=== PATIENT | male | born 1995 | race Caucasian/White ===

== ENCOUNTER 2017-04-07 22:40 | Emergency (ER) | payer BC, MEDICAID ==
[2017-04-07 23:24] VITALS: BP 135/77
== END 2017-04-08 01:00 | disposition left against medical advice (07) ==
LOC: JP.ED 22:40
DX: Z53.21 Procedure and treatment not carried out due to patient leaving prior to being seen by health care provider (principal)

== ENCOUNTER 2017-06-21 21:22 | Emergency (ER) | payer BC ==
[2017-06-21 21:50] VITALS: BP 148/80
--- NOTE | 2017-06-21 23:08 | EDM.PDOC ---
ED HPI GENERAL MEDICAL PROBLEM - General Chief Complaint: General Stated Complaint: ILLNESS Time Seen by Provider: 06/21/17 21:54 Source of Information: Reports: Patient History Limitations: Reports: No Limitations - History of Present Illness INITIAL COMMENTS - FREE TEXT/NARRATIVE: this gentleman is here because of concerns about possible DVTs. He is a chemotherapy patient and recently had a pulmonary embolus. He had been taking Lovenox and then was put on Coumadin. His INR was 3.0 recently he was taken off the Lovenox and Coumadin. Today his INR is down to 1.4 so Lovenox was restarted. However he has been complaining of cramps in both of his calves and he talk with the oncologist and was told he needed to come here to rule out DVTs. - Related Data Allergies Allergy/AdvReac Type Severity Reaction Status Date / Time No Known Allergies Allergy Verified 06/21/17 21:36 Home Meds: Home Meds Venlafaxine [Effexor] 75 mg PO DAILY 04/07/17 [History] Dexamethasone 4 mg PO ASDIRECTED 06/21/17 [History] Enoxaparin [Lovenox] 80 mg SQ BID 06/21/17 [History] Ondansetron HCl [Ondansetron] 8 mg PO Q8HR PRN 06/21/17 [History] Warfarin Sodium [Coumadin] 10 mg PO DAILY 06/21/17 [History] Past Medical History - Past Health History Medical/Surgical History: Denies Medical/Surgical History HEENT History: Reports: Impaired Vision Cardiovascular History: Reports: Blood Clots/VTE/DVT Respiratory History: Reports: PE Genitourinary History: Reports: Renal Calculus Neurological History: Reports: Concussion Psychiatric History: Reports: Depression Immunologic History: Reports: Immunosuppression, Other (See Below) Other Immunologic History: chemo Oncologic (Cancer) History: Reports: Hodgkin's Lymphoma, Lymphoma - Past Surgical History Oncologic Surgical History: Reports: Other (See Below) Other Oncologic Surgeries/Procedures: lymph node removed Social & Family History - Tobacco Use Smoking Status *Q: Never Smoker - Caffeine Use Caffeine Use: Reports: Coffee, Soda - Recreational Drug Use Recreational Drug Use: Yes Recreational Drug Type: Reports: Marijuana/Hashish Recreational Drug Use Frequency: Rarely ED ROS GENERAL - Review of Systems Review Of Systems: ROS reveals no pertinent complaints other than HPI. ED EXAM, GENERAL - Physical Exam Exam: See Below Exam Limited By: No Limitations General Appearance: Alert, Thin Respiratory/Chest: Lungs Clear Cardiovascular: Regular Rate, Rhythm Extremities: Other (no obvious swelling of the legs however he does have some mild to moderate calf tenderness bilaterally. No cords are palpable. Pedal pulses all normal) Neurological: Alert Course - Vital Signs Last Recorded V/S: Last Vital Signs Temp 37 C 06/21/17 21:48 Pulse 87 06/21/17 21:48 Resp 14 06/21/17 21:48 BP 148/80 H 06/21/17 21:48 Pulse Ox 96 06/21/17 21:48 - Re-Assessments/Exams Free Text/Narrative Re-Assessment/Exam: 07/09/17 08:03 bilateral venous ultrasound showed no evidence of lower extremity DVTs Departure - Departure Time of Disposition: 23:06 Disposition: Home, Self-Care 01 Condition: Fair Clinical Impression: Bilateral calf pain, Hodgkins lymphoma - Discharge Information Referrals: Jane Cooper MD [Primary Care Provider] - Forms: ED Department Discharge Additional Instructions: Continue Lovenox and warfarin as directed by your Dr. Return to the ER at any time if needed
--- NOTE | 2017-06-22 11:58 | US ---
No evidence for acute DVT.
== END 2017-06-21 23:15 | disposition home or self-care (01) ==
LOC: JP.ED 21:22
DX: M79.662 Pain in left lower leg (principal); M79.661 Pain in right lower leg; C81.90 Hodgkin lymphoma, unspecified, unspecified site; F32.9 Major depressive disorder, single episode, unspecified; Z86.718 Personal history of other venous thrombosis and embolism; Z87.442 Personal history of urinary calculi; Z98.890 Other specified postprocedural states; Z79.01 Long term (current) use of anticoagulants; Z79.899 Other long term (current) drug therapy
CPT/HCPCS: 93970; 93970-26; 99284-25

== ENCOUNTER 2017-09-03 13:31 | Inpatient (IN) | payer BC ==
[2017-09-03] MEDS ORDERED: LIDOCAINE 2% PO PRN ×2 (14:29)
[2017-09-03] MEDS ORDERED: SODIUM CHLORIDE 0.9% PO PRN ×2 (14:29)
[2017-09-03] MEDS ORDERED: [UNRECOGNIZED DRUG - OTHER] PO PRN (14:47)
[2017-09-03] MEDS: 1: AA 5%/Calcium/D15W/Lytes 1,000 ML with MVI, Adult with Vitamin K 10 ML, Chromium/Copp IV SCH ×3 (15:03)
--- NOTE | 2017-09-03 15:31 | PCM.HP ---
H&P History of Present Illness - General Date of Service: 09/03/17 Source of Information: Patient History Limitations: Reports: No Limitations - History of Present Illness Initial Comments - Free Text/Narative: Anthony is a 22 year old male who was diagnosed with Hodkin's Lymphoma in Feb, 2017. He finished radiation therapy last week and now has been unable to eat or drink because his mouth and throat are so sore. Anthony has been getting 1 liter of NS once daily for the past 4 - 5 days. Reports feeling weak and tired. He has been on Decadron and has has an oral medication to numb his mouth and throat which he can't remember the name of the specific medicine. Onset of Symptoms: Reports: Gradual Associated Symptoms: Reports: Loss of Appetite, Malaise, Weakness - Related Data Allergies/Adverse Reactions: Allergies Allergy/AdvReac Type Severity Reaction Status Date / Time No Known Allergies Allergy Verified 09/03/17 13:53 Home Medications: Home Meds Venlafaxine [Effexor] 75 mg PO DAILY 04/07/17 [History] Dexamethasone 4 mg PO ASDIRECTED 06/21/17 [History] Ondansetron HCl [Ondansetron] 8 mg PO Q8HR PRN 06/21/17 [History] Warfarin Sodium [Coumadin] 10 mg PO DAILY 06/21/17 [History] Hydrocodone/Acetaminophen [Hydrocodon-Acetaminophen 5-325] 1 each PO Q4H PRN [History] Past Medical History - Past Health History Medical/Surgical History: Denies Medical/Surgical History HEENT History: Reports: Impaired Vision Cardiovascular History: Reports: Blood Clots/VTE/DVT Respiratory History: Reports: PE Genitourinary History: Reports: Renal Calculus Musculoskeletal History: Reports: None Neurological History: Reports: Concussion Psychiatric History: Reports: Depression Immunologic History: Reports: Immunosuppression, Other (See Below) Other Immunologic History: chemo Oncologic (Cancer) History: Reports: Hodgkin's Lymphoma, Lymphoma Dermatologic History: Reports: Eczema, Other (See Below) Other Dermatologic History: rash on upper chest and neck d/t radiation - Infectious Disease History Infectious Disease History: Reports: Chicken Pox - Past Surgical History HEENT Surgical History: Reports: None Cardiovascular Surgical History: Reports: None Respiratory Surgical History: Reports: None Male Surgical History: Reports: None Neurological Surgical History: Reports: None Musculoskeletal Surgical History: Reports: Arthroscopic Knee Oncologic Surgical History: Reports: Other (See Below) Other Oncologic Surgeries/Procedures: lymph node removed Dermatological Surgical History: Reports: None Social & Family History - Tobacco Use Smoking Status *Q: Never Smoker Second Hand Smoke Exposure: No - Caffeine Use Caffeine Use: Reports: Coffee, Soda - Recreational Drug Use Recreational Drug Use: No Recreational Drug Type: Reports: Marijuana/Hashish Recreational Drug Use Frequency: Rarely H&P Review of Systems - Review of Systems: Review Of Systems: See Below General: Reports: Weakness, Fatigue, Decreased Appetite HEENT: Reports: Sore Throat, Other (mouth is sore ) Pulmonary: Reports: No Symptoms Cardiovascular: Reports: No Symptoms Gastrointestinal: Reports: Decreased Appetite, Nausea Genitourinary: Reports: No Symptoms Musculoskeletal: Reports: Leg Pain Skin: Reports: Other (rash on left side of neck ) Psychiatric: Reports: Depression Neurological: Reports: No Symptoms Hematologic/Lymphatic: Reports: No Symptoms Immunologic: Reports: No Symptoms Exam - Exam Exam: See Below - Vital Signs Weight: 179 lb 12.8 oz - Exam Quality Assessment: DVT Prophylaxis General: Alert, Oriented, Cooperative, Mild Distress HEENT: PERRLA Neck: Supple Lungs: Clear to Auscultation, Normal Respiratory Effort Cardiovascular: Regular Rate, Regular Rhythm GI/Abdominal Exam: Non-Tender (Male) Exam: Deferred Rectal (Males) Exam: Deferred Back Exam: Normal Inspection Extremities: Normal Inspection, Normal Range of Motion Skin: Warm, Dry, Intact, Rash (radiation burn left side of neck and upper jaw line ) Neurological: Cranial Nerves Intact, Reflexes Equal Bilateral Neuro Extensive - Mental Status: Alert, Oriented x3, Normal Mood/Affect Neuro Extensive - Motor, Sensory, Reflexes: CN II-XII Intact Psychiatric: Alert, Normal Affect, Normal Mood *Q Meaningful Use (ADM) - VTE *Q VTE Criteria *Q: - Stroke *Q Stroke Criteria *Q: - AMI *Q AMI Criteria *Q: - Problem List (1) Stomatitis and mucositis SNOMED Code(s): 40132243 ICD Code: K12.1 - OTHER FORMS OF STOMATITIS; K12.30 - ORAL MUCOSITIS ( ULCERATIVE), UNSPECIFIED Status: Acute Current Visit: Yes (2) Malnutrition SNOMED Code(s): 77018260 ICD Code: E46 - UNSPECIFIED PROTEIN-CALORIE MALNUTRITION Status: Acute Current Visit: Yes Qualifiers: Protein-calorie malnutrition severity: moderate Problem List Initiated/Reviewed/Updated: Yes Orders Last 24hrs: Active Orders 24 hr Category Date Time Status Intake and Output [RC] CONTINUOUS Care 09/03/17 14:21 Active Vital Signs [RC] Q4H Care 09/03/17 14:23 Active Full Liquid Diet [DIET] Diet 09/03/17 Dinner Ordered ALT Order Med 09/03/17 14:30 Active Fat Emulsion [Intralipid 20%] 100 ml Med 09/03/17 18:00 Active IV DAILY@1800 Lidocaine 2% [Xylocaine 2% Viscous] 30 ml Med 09/03/17 14:29 Active Sodium Chloride 0.9% 150 ml PO ASDIRECTED Magnesium Sulfate/Water [Magnesium Sulfate 2 GM in Med 09/03/17 16:00 Active Water 50 ML] 2 gm Premix Bag 1 bag IV Q6H Non-Formulary Medication [NF Drug] Med 09/03/17 14:47 Active 0 each PO ASDIRECTED PRN Non-Formulary Medication [NF Drug] Med 09/04/17 09:00 Active 0 each TOP DAILY Venlafaxine [Effexor] Med 09/03/17 17:00 Active 75 mg PO DAILY@1700 Medication Orders Lidocaine HCl 30 ml/ Sodium (Chloride 150 ml) 0 ml PO ASDIRECTED PRN PRN Reason: SORENESS Multivitamins/Minerals 10 ml/Chromium/Copper/Manganese/Seleni/Zn 1 ml/ Amino Ac/ Electrol/Dextrose/Calcium 1,011 mls @ 100 mls/hr IV .BY DURATION [facility] Last Admin: 09/03/17 15:03 Dose: 100 mls/hr Amino Ac/Electrol/Dextrose/Calcium (Clinimix E 02/22) 1,000 mls @ 100 mls/hr IV .BY DURATION [facility] Fat Emulsion Intravenous (Intralipid 20%) 100 mls @ 8 mls/hr IV DAILY@1800 [facility] Magnesium Sulfate 2 gm/ Premix 50 mls @ 25 mls/hr IV Q6H [facility] Stop: 09/05/17 11:59 Emu Oil *Pom* 0 each TOP DAILY MAGED Mugard *Pom* 0 each PO ASDIRECTED PRN PRN Reason: MOUTH SORENESS Venlafaxine HCl (Effexor) 75 mg PO DAILY@1700 [facility] Assessment/Plan Comment:: Assessment: Stomatitis Secondary to Radiation Therapy Malnutrition Hodkin's lymphoma Plan: Admit to [facility] To keep up with hydration and to start TPN for nutrition See Copy of orders in EMR Admit to Inpatient for hospital stay of 3 nights and 4 days. Annita Bill
[2017-09-03] MEDS: Acetaminophen/HYDROcodone 325-7.5 MG Tab PO PRN ×2 (16:10→20:25)
[2017-09-03] MEDS: Magnesium Sulfate/Water 2 GM in Premix Bag 1 BAG IV SCH ×2 (16:46→22:48)
[2017-09-03] MEDS ORDERED: Venlafaxine 75 MG Tab PO SCH (17:00)
[2017-09-03] MEDS: Venlafaxine 75 MG Cap.ER PO SCH (17:24)
[2017-09-03] MEDS: Fat Emulsion 100 ML IV SCH (20:27)
[2017-09-04] MEDS: Acetaminophen/HYDROcodone 325-7.5 MG Tab PO PRN ×6 (00:29→23:31)
[2017-09-04] MEDS: 1: AA 5%/Calcium/D15W/Lytes 1,000 ML with MVI, Adult with Vitamin K 10 ML, Chromium/Copp IV SCH ×12 (00:29→19:51)
[2017-09-04] MEDS: Magnesium Sulfate/Water 2 GM in Premix Bag 1 BAG IV SCH ×4 (04:15→22:52)
[2017-09-04] MEDS: EMU OIL TOP SCH (09:17)
[2017-09-04] MEDS: [UNRECOGNIZED DRUG - OTHER] PO PRN ×2 (09:22→15:37)
[2017-09-04] MEDS ORDERED: Warfarin 5 MG Tab PO ONE (09:30)
[2017-09-04] MEDS: Venlafaxine 75 MG Cap.ER PO SCH (17:25)
[2017-09-04] MEDS: Fat Emulsion 100 ML IV SCH (17:39)
[2017-09-05] MEDS: Magnesium Sulfate/Water 2 GM in Premix Bag 1 BAG IV SCH ×2 (03:29→09:00)
[2017-09-05] MEDS: Acetaminophen/HYDROcodone 325-7.5 MG Tab PO PRN ×6 (03:33→23:13)
[2017-09-05] MEDS: 1: AA 5%/Calcium/D15W/Lytes 1,000 ML with MVI, Adult with Vitamin K 10 ML, Chromium/Copp IV SCH ×6 (04:24→06:14)
[2017-09-05] MEDS ORDERED: [UNRECOGNIZED DRUG - OTHER] PO PRN (08:11)
[2017-09-05] MEDS ORDERED: Warfarin 5 MG Tab PO ONE (09:00)
[2017-09-05] MEDS: EMU OIL TOP SCH (09:00)
[2017-09-05] MEDS: Enoxaparin 60 MG/0.6 ML Syringe SUBCUT SCH ×2 (09:00→23:13)
[2017-09-05] MEDS: Hydrocortisone 1% Crm 30 GM Tube TOP SCH ×2 (09:01→23:13)
[2017-09-05] MEDS: [UNRECOGNIZED DRUG - OTHER] PO SCH ×3 (09:05→23:12)
--- NOTE | 2017-09-05 13:56 | PN ---
DATE OF SERVICE: 09/04/2017 The patient has been afebrile with stable vital signs. He was started on MuGard, he thinks this may be helping a little bit with the oral symptoms. He had around 680 mL of liquids in since admission and is otherwise tolerating the TPN. Protime is down with an INR of 1.8 today. We will give him 10 mg of Coumadin. Otherwise, the patient may shower, and we will continue the present TPN rate and content. It will be interesting to see over the weekend if with the MuGard, the oral symptoms may improve to the extent that he does not necessarily need to go home on the TPN, but we will see how things go over the next 48 hours in that regard. Yousif Daigle MD /[id number]
[2017-09-05] MEDS: MANG IV SCH ×2 (15:09)
[2017-09-05] MEDS: LYTES IV SCH ×2 (15:09)
[2017-09-05] MEDS: COPPER IV SCH ×2 (15:09)
[2017-09-05] MEDS: [UNRECOGNIZED DRUG - OTHER] IV SCH ×2 (15:09)
[2017-09-05] MEDS: SELEN IV SCH ×2 (15:09)
[2017-09-05] MEDS: CALCIUM IV SCH ×2 (15:09)
[2017-09-05] MEDS: CHROMIUM IV SCH ×2 (15:09)
[2017-09-05] MEDS: Venlafaxine 75 MG Cap.ER PO SCH (17:06)
[2017-09-05] MEDS: Fat Emulsion 100 ML IV SCH (17:06)
[2017-09-06] MEDS: SELEN IV SCH ×2 (01:39)
[2017-09-06] MEDS: LYTES IV SCH ×2 (01:39)
[2017-09-06] MEDS: CHROMIUM IV SCH ×2 (01:39)
[2017-09-06] MEDS: CALCIUM IV SCH ×2 (01:39)
[2017-09-06] MEDS: [UNRECOGNIZED DRUG - OTHER] IV SCH ×2 (01:39)
[2017-09-06] MEDS: COPPER IV SCH ×2 (01:39)
[2017-09-06] MEDS: MANG IV SCH ×2 (01:39)
[2017-09-06] MEDS: Acetaminophen/HYDROcodone 325-7.5 MG Tab PO PRN ×2 (04:23→10:09)
[2017-09-06] MEDS: [UNRECOGNIZED DRUG - OTHER] PO SCH ×2 (05:43→10:41)
[2017-09-06 07:26] VITALS: BP 132/69
[2017-09-06] MEDS ORDERED: Silver Sulfadiazine 1% Crm 50 GM Tube TOP SCH (09:00)
[2017-09-06] MEDS: Enoxaparin 60 MG/0.6 ML Syringe SUBCUT SCH (10:08)
[2017-09-06] MEDS: Hydrocortisone 1% Crm 30 GM Tube TOP SCH (10:41)
[2017-09-06] MEDS: EMU OIL TOP SCH (10:41)
--- NOTE | 2017-09-06 15:00 | PN ---
DATE OF SERVICE: 09/05/2017 The patient has been afebrile with stable vital signs. Oral intake in terms of water is fairly good, but still not taking very much in the way of anything of nutritional value. We will continue the TPN and MuGard. We will see where we are at tomorrow morning with regard to the oral intake. The ProTime today is quite low with an INR of 1.28. This is likely related to the vitamins he is receiving from the TPN. vitamins and the TPN. We will give him 50 mg of Coumadin. He also complained of some itching on the neck areas that have the radiation savage and that area will be treated with some hydrocortisone cream. With the ProTime being that low, we will begin Lovenox 60 mg b.i.d. until we get the INR improved back up to the therapeutic range. Yousif Daigle MD /[id number]
--- NOTE | 2017-09-07 07:27 | DISCH ---
ADMISSION DIAGNOSES: Stomatitis and mucositis, malnutrition and Hodgkin lymphoma. DISCHARGE DIAGNOSES: Improvement of stomatitis and mucositis with malnutrition, Hodgkin lymphoma. HISTORY: Anthony Blackman finished radiation therapy and developed stomatitis and mucositis which resulted in malnutrition and dehydration. He was admitted to the hospital on 09/03/2017 and started on IV fluids, TPN. His INR and PT were roched daily. He was started also on MuGard for the stomatitis and mucositis to improve and he was given the TPN throughout the weekend. On 09/05/2017, he was afebrile. Oral intake was fairly good with MuGard. He continued to be on the TPN and he was also on Lovenox 60 mg until the INR improved back up to the therapeutic range. The left neck radiation burn was causing some itching in that area and he was started on hydrocortisone. On 09/06/2017, he was able to be discharged to home. Vital signs were stable. Oral intake was 1570 which most of it was Unjury protein. His TPN was turned down to 42 hours prior to being discharged to home. He reports that the hydrocortisone did burn so was changed to Silvadene. Vital signs were stable. Pain was well managed and oral intake adequate. He will be discharged to home using the MuGard for mouth pain. PHYSICAL EXAMINATION: GENERAL: Anthony Blackman is a 22-year-old male. Height is 5 feet 11 inches. Weight is 179 pounds. TPR 97.3, 80, 16, blood pressure 132/69. HEENT: Negative. NECK: Supple. HEART: Regular rate and rhythm. LUNGS: Clear. ABDOMEN: Deferred. EXTREMITIES: Negative. SKIN: Radiation burn noted on the left lower jaw and neck. DISPOSITION: Discharged to home. CONDITION: Stable and improving. FOLLOWUP: With Yousif Daigle MD, on 09/08/2017 at 9 a.m. He is to have his PT and INR checked at 0830 hours before his appointment. HOME MEDICATION: Peggs 7.5 mg/325 1-2 tablets q.4 hours p.r.n. pain #50, Lovenox 60 mg subcu b.i.d. #6, Silvadene 1% cream/400 g use sparingly 2 twice daily to burn, Coumadin 5 mg today and 10 mg on Wednesday and he is to hold the Coumadin on the day of his appointment until after he gets his PT and INR checked. He is to resume his home medications venlafaxine 75 mg oral daily, Zofran 8 mg every 8 hours p.r.n. nausea. DISCHARGE DIET: Usual diet as tolerated. Drink 8 to 10 glasses of water a day. ACTIVITY: As tolerated. Driving, may drive today. May shower. Notify provider if any pain, nausea or vomiting. Special instructions, to continue taking the MuGard as directed and to call clinic with any questions or concerns.
== END 2017-09-06 10:42 | disposition home health service (06) | DRG 114 ==
LOC: JP.2SS 13:31
PROVIDERS: ADMIT Surgery; ATTEND Surgery
DX: K12.33 Oral mucositis (ulcerative) due to radiation (principal); K12.1 Other forms of stomatitis; E44.0 Moderate protein-calorie malnutrition; Z68.25 Body mass index [BMI] 25.0-25.9, adult; C81.90 Hodgkin lymphoma, unspecified, unspecified site; Z92.21 Personal history of antineoplastic chemotherapy; Z92.3 Personal history of irradiation; H54.7 Unspecified visual loss; Z86.711 Personal history of pulmonary embolism; Z86.718 Personal history of other venous thrombosis and embolism; F32.9 Major depressive disorder, single episode, unspecified; Z79.01 Long term (current) use of anticoagulants; Z79.52 Long term (current) use of systemic steroids; E86.0 Dehydration; T20.07XA Burn of unspecified degree of neck, initial encounter
CPT/HCPCS: 36415; 80053; 84100; 85027; 85610; A9270-GY; J1650; J3475; J3490

== ENCOUNTER 2017-09-10 18:52 | Emergency (ER) | payer BC ==
[2017-09-10 19:41] VITALS: BP 124/74
[2017-09-10] MEDS ORDERED: Lactated Ringers 1,000 ML IV ONE (20:22)
--- NOTE | 2017-09-10 20:22 | EDM.PDOC ---
ED HPI GENERAL MEDICAL PROBLEM - General Chief Complaint: General Stated Complaint: illness Time Seen by Provider: 09/10/17 20:10 Source of Information: Reports: Patient History Limitations: Reports: No Limitations - History of Present Illness INITIAL COMMENTS - FREE TEXT/NARRATIVE: 22 yo male with Hodgkin's Lymphoma was recently discharged from here after an admission for not being able to eat due to mouth sores. He returns tonight still unable to eat. Has been drinking some protein shakes. 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 Has not discussed this with his doctor's since departing the hospital this past Wednesday. Also has anorexia. Onset: Gradual Duration: Day(s):, Getting Worse Location: Reports: Face (mouth) Quality: Reports: Other (mouth sore) Improves with: Reports: Rest Worsens with: Reports: Eating Context: Reports: Other (radiation therapy to area for Hodgkin's Dz) Associated Symptoms: Reports: Loss of Appetite, Malaise. Denies: Cough, Diaphoresis, Fever/Chills, Nausea/Vomiting, Syncope Treatments SODDER: Reports: Other (see below) (Topical Rx tid) mouth Pain Score (Numeric/FACES): 5 - Related Data Allergies Allergy/AdvReac Type Severity Reaction Status Date / Time No Known Allergies Allergy Verified 09/10/17 19:49 Home Meds: Home Meds Ondansetron HCl [Ondansetron] 8 mg PO Q8HR PRN 06/21/17 [History] Venlafaxine HCl [Venlafaxine HCl ER] 75 mg PO DAILY 09/03/17 [History] Acetaminophen/HYDROcodone [Deary 325-7.5 MG] 1 - 2 tab PO Q4H PRN #50 tablet [Rx] Silver Sulfadiazine [Silvadene 1% Cream 400 GM] 1 gm TOP BID #1 jar 09/06/17 [Rx ] Warfarin Sodium [Coumadin] 5 mg PO DAILY #0 09/06/17 [Rx] Past Medical History - Past Health History Medical/Surgical History: Denies Medical/Surgical History HEENT History: Reports: Impaired Vision Cardiovascular History: Reports: Blood Clots/VTE/DVT Respiratory History: Reports: PE Genitourinary History: Reports: Renal Calculus Musculoskeletal History: Reports: None Neurological History: Reports: Concussion Psychiatric History: Reports: Depression Immunologic History: Reports: Immunosuppression, Other (See Below) Other Immunologic History: chemo Oncologic (Cancer) History: Reports: Hodgkin's Lymphoma, Lymphoma Dermatologic History: Reports: Eczema, Other (See Below) Other Dermatologic History: rash on upper chest and neck d/t radiation - Infectious Disease History Infectious Disease History: Reports: Chicken Pox - Past Surgical History Musculoskeletal Surgical History: Reports: Arthroscopic Knee Oncologic Surgical History: Reports: Other (See Below) Other Oncologic Surgeries/Procedures: lymph node removed Social & Family History - Tobacco Use Smoking Status *Q: Never Smoker Second Hand Smoke Exposure: No - Caffeine Use Caffeine Use: Reports: Coffee, Soda - Recreational Drug Use Recreational Drug Use: No Recreational Drug Type: Reports: Marijuana/Hashish Recreational Drug Use Frequency: Rarely ED ROS GENERAL - Review of Systems Review Of Systems: See Below Constitutional: Reports: Malaise, Decreased Appetite. Denies: Fever, Chills HEENT: Reports: Throat Pain (back of mouth) Respiratory: Reports: No Symptoms Cardiovascular: Reports: No Symptoms Endocrine: Reports: No Symptoms GI/Abdominal: Reports: Anorexia. Denies: Abdominal Pain, Black Stool, Bloody Stool, Distension, Hematemesis, Hematochezia, Nausea, Stool Incontinence, Vomiting : Reports: Other (dark urine) Musculoskeletal: Reports: No Symptoms Skin: Reports: No Symptoms Neurological: Reports: No Symptoms Psychiatric: Reports: No Symptoms ED EXAM, GENERAL - Physical Exam Exam: See Below Exam Limited By: No Limitations General Appearance: Alert, WD/WN, No Apparent Distress Eye Exam: Bilateral Eye: Normal Inspection Ears: Normal External Exam, Normal Canal, Hearing Grossly Normal, Other ( bilateral cerumen impactions) Ear Exam: Bilateral Ear: Auricle Normal, Other (wax in both ears.) Nose: Normal Inspection, Normal Mucosa, No Blood Throat/Mouth: Normal Inspection, Normal Lips, Normal Voice, No Airway Compromise , Inflammation (oral mucosa swollen and angry looking) Head: Atraumatic, Normocephalic Neck: Normal Inspection, Supple, Non-Tender Respiratory/Chest: No Respiratory Distress, Lungs Clear, Normal Breath Sounds, No Accessory Muscle Use Cardiovascular: Regular Rate, Rhythm, No Edema GI/Abdominal: Normal Bowel Sounds, Soft, Non-Tender, No Distention Back Exam: Normal Inspection. No: CVA Tenderness (R), CVA Tenderness (L) Extremities: Normal Inspection, Normal Range of Motion, Non-Tender, No Pedal Edema Neurological: Alert, Oriented, CN II-XII Intact, Normal Cognition, No Motor/ Sensory Deficits Psychiatric: Normal Affect, Normal Mood Skin Exam: Warm, Dry, Intact, Normal Color, No Rash Lymphatic: No Adenopathy Course - Vital Signs Last Recorded V/S: Last Vital Signs Temp 36.2 C 09/10/17 20:04 Pulse 74 09/10/17 20:04 Resp 16 09/10/17 20:04 BP 124/74 09/10/17 20:04 Pulse Ox 94 L 09/10/17 20:04 Orthostatic Blood Pressure [ 117/78 Standing] Orthostatic Blood Pressure [ 125/77 Sitting] Orthostatic Blood Pressure [ 125/75 Supine] - Orders/Labs/Meds Orders: Active Orders 24 hr Category Date Time Status Orthostatic Vital Signs [RC] ASDIRECTED Care 09/10/17 20:03 Active Lactated Ringers [Ringers, Lactated] 1,000 ml Med 09/10/17 20:22 Active IV BOLUS Medication Orders Lactated Ringer's (Ringers, Lactated) 1,000 mls @ 1,000 mls/hr IV BOLUS ONE Stop: 09/10/17 21:21 Last Admin: 09/10/17 20:45 Dose: 1,000 mls/hr Labs: Laboratory Tests 09/10/17 Range/Units 20:11 Urine Color [place] Urine Appearance Clear Urine pH 5.0 (4.5-8.0) Ur Specific [place] 1.030 (1.008-1.030) Urine Protein Negative (NEGATIVE) mg/dL Urine Glucose (UA) Normal (NEGATIVE) mg/dL Urine Ketones 15 H (NEGATIVE) mg/dL Urine Occult Blood Negative (NEGATIVE) Urine Nitrite Negative (NEGAITVE) Urine Bilirubin Small (NEGATIVE) Urine Urobilinogen 1 (NORMAL) mg/dL Ur Leukocyte Esterase Negative (NEGATIVE) Meds: Medications Generic Name Dose Route Start Last Admin Trade Name Freq PRN Reason Stop Dose Admin Lactated Ringer's 1,000 mls @ 1,000 mls/hr 09/10/17 20:22 09/10/17 20:45 Ringers, Lactated IV 09/10/17 21:21 1,000 mls/hr BOLUS ONE Administration Departure - Departure Time of Disposition: 21:45 Disposition: Home, Self-Care 01 Condition: Fair Clinical Impression: Stomatitis and mucositis, Mild dehydration, Bilateral impacted cerumen - Discharge Information Referrals: PCP,None [Primary Care Provider] - Forms: ED Department Discharge - My Orders Last 24 Hours: My Active Orders 09/10/17 20:03 Orthostatic Vital Signs [RC] ASDIRECTED 09/10/17 20:22 Lactated Ringers [Ringers, Lactated] 1,000 ml IV BOLUS - Assessment/Plan Last 24 Hours: My Active Orders 09/10/17 20:03 Orthostatic Vital Signs [RC] ASDIRECTED 09/10/17 20:22 Lactated Ringers [Ringers, Lactated] 1,000 ml IV BOLUS
== END 2017-09-10 22:07 | disposition home or self-care (01) ==
LOC: JP.ED 18:52
DX: K12.1 Other forms of stomatitis (principal); K12.30 Oral mucositis (ulcerative), unspecified; E86.0 Dehydration; H61.23 Impacted cerumen, bilateral; Z79.899 Other long term (current) drug therapy
CPT/HCPCS: 81003; 96360; 99283; J1642; J7120

== ENCOUNTER 2017-09-13 13:18 | Emergency (ER) | payer BC ==
[2017-09-13 14:09] VITALS: BP 115/68
--- NOTE | 2017-09-13 14:44 | EDM.PDOC ---
ED HPI GENERAL MEDICAL PROBLEM - General Chief Complaint: General Stated Complaint: POSSIBLE INFECTION Time Seen by Provider: 09/13/17 14:32 Source of Information: Reports: Patient, Family, Old Records, RN Notes Reviewed History Limitations: Reports: No Limitations - History of Present Illness INITIAL COMMENTS - FREE TEXT/NARRATIVE: 22-year-old gentleman presents emergency department today complaint of swollen glands in his neck he does have a history of Hodgkin's lymphoma status post chemotherapy treatment has had difficulty with mucositis and been treated with TPN due to poor oral intake. He woke up this morning and feeling his glands are swollen in his neck no difficulty swallowing no difficulty breathing no fevers Throat Pain Score (Numeric/FACES): 1 - Related Data Allergies Allergy/AdvReac Type Severity Reaction Status Date / Time No Known Allergies Allergy Verified 09/13/17 14:10 Home Meds: Home Meds Ondansetron HCl [Ondansetron] 8 mg PO Q8HR PRN 06/21/17 [History] Venlafaxine HCl [Venlafaxine HCl ER] 75 mg PO DAILY 09/03/17 [History] Acetaminophen/HYDROcodone [[place] 325-7.5 MG] 1 - 2 tab PO Q4H PRN #50 tablet [Rx] Warfarin Sodium [Coumadin] 5 mg PO DAILY #0 09/06/17 [Rx] Past Medical History HEENT History: Reports: Impaired Vision Cardiovascular History: Reports: Blood Clots/VTE/DVT Respiratory History: Reports: PE Genitourinary History: Reports: Renal Calculus Neurological History: Reports: Concussion Psychiatric History: Reports: Depression Immunologic History: Reports: Immunosuppression, Other (See Below) Other Immunologic History: chemo Oncologic (Cancer) History: Reports: Hodgkin's Lymphoma, Lymphoma Dermatologic History: Reports: Eczema, Other (See Below) Other Dermatologic History: rash on upper chest and neck d/t radiation - Infectious Disease History Infectious Disease History: Reports: Chicken Pox - Past Surgical History Musculoskeletal Surgical History: Reports: Arthroscopic Knee Oncologic Surgical History: Reports: Other (See Below) Other Oncologic Surgeries/Procedures: lymph node removed from neck Social & Family History - Tobacco Use Smoking Status *Q: Never Smoker Second Hand Smoke Exposure: No - Caffeine Use Caffeine Use: Reports: Coffee, Soda - Recreational Drug Use Recreational Drug Use: No Recreational Drug Type: Reports: Marijuana/Hashish Recreational Drug Use Frequency: Rarely ED ROS GENERAL - Review of Systems Review Of Systems: See Below Constitutional: Denies: Fever, Chills HEENT: Reports: Other (Lymph nodes neck). Denies: Throat Pain, Throat Swelling Respiratory: Reports: No Symptoms Cardiovascular: Reports: No Symptoms GI/Abdominal: Reports: No Symptoms : Reports: No Symptoms Musculoskeletal: Reports: No Symptoms Skin: Reports: No Symptoms ED EXAM, GENERAL - Physical Exam Exam: See Below Free Text/Narrative:: General: Male, not in any distress, alert and oriented x3 HEENT: head is atraumatic normocephalic, eyes pupils equal round reactive to light, sclera clear no conjunctivitis appreciated. Ears blocked by cerumen bilaterally. Nose no septal deviation, nares are clear, no blood present. Mouth mucosa is moist and pink no erythema or exudate noted in soft palate, tongue is midline uvula is midline, dentition is intact. Neck: Supple no thyromegaly no tracheal deviation. Nodes: Cervical nodes subclavicular nodes nontender no palpable lymphadenopathy noted. Lungs: clear to auscultation bilaterally with symmetrical respirations, no adventitious noise appreciated. CV: Regular rate and rhythm S1 and S2 appreciated no murmurs rubs or gallops noted. Abdomen: Soft, nontender, no palpable masses or organomegaly appreciated, no distention no guarding bowel sounds are present, . Course - Vital Signs Last Recorded V/S: Last Vital Signs Temp 97.6 F 09/13/17 14:05 Pulse 60 09/13/17 14:05 Resp 16 09/13/17 14:05 BP 115/68 09/13/17 14:05 Pulse Ox 98 09/13/17 14:05 - Orders/Labs/Meds Labs: Laboratory Tests 09/13/17 09/13/17 09/13/17 Range/Units 14:45 14:45 14:45 WBC 5.7 (4.5-11.0) K/uL RBC 4.81 (4.30-5.90) M/uL Hgb 14.2 (12.0-15.0) g/dL Hct 39.5 L (40.0-54.0) % MCV 82 (80-98) fL MCH 30 (27-31) pg MCHC 36 (32-36) % Plt Count 223 (150-400) K/uL Neut % (Auto) 66 (36-66) % Lymph % (Auto) 19 L (24-44) % [place] % (Auto) 11 H (2-6) % Eos % (Auto) 4 (2-4) % Baso % (Auto) 0 (0-1) % PT 34.0 H (9.5-12.0) sec INR 3.03 H (0.80-1.20) Sodium 139 L (140-148) mmol/L Potassium 4.4 (3.6-5.2) mmol/L Chloride 103 (100-108) mmol/L Carbon Dioxide 29 (21-32) mmol/L Anion Gap 11.4 (5.0-14.0) mmol/L BUN 13 (7-18) mg/dL Creatinine 0.8 (0.8-1.3) mg/dL Est Cr Clr Drug Dosing 151.65 mL/min Estimated GFR (MDRD) > 60 (>60) Glucose 95 (74-106) mg/dL Lactic Acid (0.4-2.0) mmol/L Calcium 9.5 (8.5-10.1) mg/dL Total Bilirubin 0.4 D (0.2-1.0) mg/dL AST 18 (15-37) U/L ALT 26 (12-78) U/L Alkaline Phosphatase 94 (46-116) U/L Total Protein 7.2 (6.4-8.2) g/dL Albumin 3.5 (3.4-5.0) g/dL Globulin 3.7 H (2.3-3.5) g/dL Albumin/Globulin Ratio 1.0 L (1.2-2.2) Lipase 71 L (73-393) U/L Urine Color Urine Appearance Urine pH (4.5-8.0) Ur Specific Speed (1.008-1.030) Urine Protein (NEGATIVE) mg/dL Urine Glucose (UA) (NEGATIVE) mg/dL Urine Ketones (NEGATIVE) mg/dL Urine Occult Blood (NEGATIVE) Urine Nitrite (NEGAITVE) Urine Bilirubin (NEGATIVE) Urine Urobilinogen (NORMAL) mg/dL Ur Leukocyte Esterase (NEGATIVE) Urine RBC (0-5) Urine WBC (0-5) Ur Epithelial Cells Amorphous Sediment Urine Bacteria Urine Mucus 09/13/17 09/13/17 Range/Units 14:45 15:58 WBC (4.5-11.0) K/uL RBC (4.30-5.90) M/uL Hgb (12.0-15.0) g/dL Hct (40.0-54.0) % MCV (80-98) fL MCH (27-31) pg MCHC (32-36) % Plt Count (150-400) K/uL Neut % (Auto) (36-66) % Lymph % (Auto) (24-44) % [place] % (Auto) (2-6) % Eos % (Auto) (2-4) % Baso % (Auto) (0-1) % PT (9.5-12.0) sec INR (0.80-1.20) Sodium (140-148) mmol/L Potassium (3.6-5.2) mmol/L Chloride (100-108) mmol/L Carbon Dioxide (21-32) mmol/L Anion Gap (5.0-14.0) mmol/L BUN (7-18) mg/dL Creatinine (0.8-1.3) mg/dL Est Cr Clr Drug Dosing mL/min Estimated GFR (MDRD) (>60) Glucose (74-106) mg/dL Lactic Acid 0.9 (0.4-2.0) mmol/L Calcium (8.5-10.1) mg/dL Total Bilirubin (0.2-1.0) mg/dL AST (15-37) U/L ALT (12-78) U/L Alkaline Phosphatase (46-116) U/L Total Protein (6.4-8.2) g/dL Albumin (3.4-5.0) g/dL Globulin (2.3-3.5) g/dL Albumin/Globulin Ratio (1.2-2.2) Lipase (73-393) U/L Urine Color Yellow Urine Appearance Clear Urine pH 6.0 (4.5-8.0) Ur Specific Speed 1.025 (1.008-1.030) Urine Protein Negative (NEGATIVE) mg/dL Urine Glucose (UA) Normal (NEGATIVE) mg/dL Urine Ketones Negative (NEGATIVE) mg/dL Urine Occult Blood Negative (NEGATIVE) Urine Nitrite Negative (NEGAITVE) Urine Bilirubin Negative (NEGATIVE) Urine Urobilinogen Normal (NORMAL) mg/dL Ur Leukocyte Esterase Negative (NEGATIVE) Urine RBC 0-5 (0-5) Urine WBC 0-5 (0-5) Ur Epithelial Cells Rare Amorphous Sediment Not seen Urine Bacteria Rare Urine Mucus Many Departure - Departure Time of Disposition: 16:30 Disposition: Admitted As Inpatient 64 Condition: Good Clinical Impression: Mild dehydration - Discharge Information Referrals: PCP,None [Primary Care Provider] - Forms: ED Department Discharge - Assessment/Plan Plan: Assessment Acuity = acute Site and laterality = dehydration complicated patient with known history of Hodgkin's lymphoma status post chemotherapy Etiology = difficulty swallowing Manifestations = none Location of injury = Home Lab values = CBC, CMP within normal limits urinalysis does have specific gravity 1.025 consistent with intravascular volume depletion Plan Called discussed case with Dr. Daigle general surgery recommended admission with TPN orders in the morning for CMP mag and phosphorus he will reevaluate in the hospital Patient was in agreement with the plan all questions were answered, they were instructed to return to the emergency department or call for worsening symptoms. This note was dictated using [employer] voice recognition software please call with any questions.
[2017-09-13] MEDS ORDERED: 1: AA 5%/Calcium/D15W/Lytes 1,000 ML with MVI, Adult with Vitamin K 10 ML, Chromium/Copp IV SCH ×3 (17:30)
[2017-09-13] MEDS ORDERED: Fat Emulsion 100 ML IV SCH (18:00)
== END 2017-09-13 16:48 | disposition critical access hospital (66) ==
LOC: JP.ED 13:18
DX: E86.0 Dehydration (principal); C81.90 Hodgkin lymphoma, unspecified, unspecified site; F32.9 Major depressive disorder, single episode, unspecified; Z79.01 Long term (current) use of anticoagulants; Z79.899 Other long term (current) drug therapy
CPT/HCPCS: 36415; 80053; 81001; 83605; 83690; 85025; 85610; 99284

== ENCOUNTER 2020-02-29 20:55 | Emergency (ER) | payer BC ==
[2020-02-29 21:09] VITALS: BP 134/80; PULSE 91
--- NOTE | 2020-02-29 21:34 | EDM.PDOC ---
ED HPI GENERAL MEDICAL PROBLEM - General Chief Complaint: ENT Problem Stated Complaint: FEVER,SORE THROAT Time Seen by Provider: 02/29/20 21:25 Source of Information: Reports: Patient History Limitations: Reports: No Limitations - History of Present Illness INITIAL COMMENTS - FREE TEXT/NARRATIVE: Patient presents for evaluation of sore throat and fever developing over the last 24 hours or so. He noticed a mild sore throat yesterday but thought it was related to seasonal allergies and postnasal rhinorrhea. Today his throat was quite a bit more sore and when he took his temperature was over 100F. He took 800 mg of ibuprofen and his symptoms have improved substantially since then. He does have a history of lymphoma and is always cautious about whether he is more susceptible to illnesses in general. Based on symptoms today/tonight, he came in for evaluation. Temperature is as noted. No chills. No rhinorrhea. No ear pain or itching. No other new recognized symptoms other than as noted. Onset: Gradual Duration: Hour(s): (24) Location: Reports: Head Quality: Reports: Ache Severity: Moderate Improves with: Reports: Medication (Ibuprofen 800 mg) Worsens with: Reports: Other (Swallowing) Treatments [employer]: Reports: NSAIDS, Other (see below) Other Treatments [employer]: Motrin - Related Data Allergies Allergy/AdvReac Type Severity Reaction Status Date / Time No Known Allergies Allergy Verified 02/29/20 21:16 Home Meds: Home Meds Venlafaxine HCl [Venlafaxine HCl ER] 75 mg PO DAILY 09/03/17 [History] Past Medical History HEENT History: Reports: Impaired Vision Cardiovascular History: Reports: Blood Clots/VTE/DVT Respiratory History: Reports: PE Genitourinary History: Reports: Renal Calculus Neurological History: Reports: Concussion Psychiatric History: Reports: Depression Immunologic History: Reports: Immunosuppression, Other (See Below) Other Immunologic History: chemo Oncologic (Cancer) History: Reports: Hodgkin's Lymphoma, Lymphoma Dermatologic History: Reports: Eczema, Other (See Below) Other Dermatologic History: rash on upper chest and neck d/t radiation - Infectious Disease History Infectious Disease History: Reports: Chicken Pox - Past Surgical History Oncologic Surgical History: Reports: Other (See Below) Other Oncologic Surgeries/Procedures: lymph node removed from neck Social & Family History - Caffeine Use Caffeine Use: Reports: Coffee, Soda ED ROS ENT - Review of Systems Review Of Systems: See Below Constitutional: Reports: Fever. Denies: Chills, Malaise, Night Sweats HEENT: Reports: Throat Pain. Denies: Nose Pain, Rhinitis Respiratory: Reports: No Symptoms Cardiovascular: Reports: No Symptoms GI/Abdominal: Reports: No Symptoms Musculoskeletal: Reports: No Symptoms Skin: Reports: No Symptoms ED EXAM, ENT - Physical Exam Exam: See Below Text/Narrative:: This is a conversant adult male seated in room 2 in no distress. Exam Limited By: No Limitations General Appearance: Alert, No Apparent Distress Ears: TM Obscured by Cerumen (Left canal.) Nose: Normal Inspection Mouth/Throat: Throat Pain, Tonsillar Erythema, Tonsillar Exudates Head: Normocephalic Neck: No: Lymphadenopathy (R), Lymphadenopathy (L) Respiratory/Chest: No Respiratory Distress, Lungs Clear Cardiovascular: Regular Rate, Rhythm GI/Abdominal: Soft, Non-Tender Lymphatic: No Adenopathy Course - Vital Signs Last Recorded V/S: Last Vital Signs Temp 37.3 C 02/29/20 21:28 Pulse 91 02/29/20 21:28 Resp 16 02/29/20 21:28 BP 134/80 02/29/20 21:28 Pulse Ox 97 02/29/20 21:28 - Orders/Labs/Meds Orders: Active Orders 24 hr Category Date Time Status CULTURE STREP A CONFIRMATION [RM] Stat Lab 02/29/20 21:45 Results STREP SCRN A RAPID W CULT CONF [RM] Stat Lab 02/29/20 21:41 Ordered - Re-Assessments/Exams Free Text/Narrative Re-Assessment/Exam: 02/29/20 21:51 We'll obtain a rapid strep screen but he does not require other lab testing at this point. 02/29/20 22:07 His rapid strep swab is negative. I discussed with him that a culture will be performed and results should be available by Wednesday, 02 March. In the meantime, use ibuprofen 800 mg 3 times daily for pain. Ensure adequate hydration. Reasons to return to emergency department reviewed. If not better in one week, recheck in clinic or return here. Departure - Departure Time of Disposition: 22:01 Disposition: Home, Self-Care 01 Condition: Good Clinical Impression: Pharyngitis Qualifiers: Pharyngitis/tonsillitis etiology: unspecified etiology Qualified Code(s): J02.9 - Acute pharyngitis, unspecified - Discharge Information *PRESCRIPTION DRUG MONITORING PROGRAM REVIEWED*: Not Applicable *COPY OF PRESCRIPTION DRUG MONITORING REPORT IN PATIENT JO ANN: Not Applicable Instructions: Pharyngitis, [id number] Referrals: PCP,None [Primary Care Provider] - Forms: ED Department Discharge Additional Instructions: I recommend adequate fluids along with ibuprofen 800 mg 3 times a day for pain. A culture will be performed from the swab taken from your throat today and results of that culture should be available by Wednesday, the . You could call back to the emergency department for results of the culture. Return to ER if feeling worse in anyway. Sepsis Event Note - Focused Exam Vital Signs: Vital Signs Temp Pulse Resp BP Pulse Ox 02/29/20 21:28 37.3 C 91 16 134/80 97 02/29/20 21:08 37.3 C 91 16 134/80 97 Date Exam was Performed: 02/29/20 Time Exam was Performed: 22:07 - My Orders Last 24 Hours: My Active Orders 02/29/20 21:41 STREP SCRN A RAPID W CULT CONF [RM] Stat 02/29/20 21:45 CULTURE STREP A CONFIRMATION [RM] Stat - Assessment/Plan Last 24 Hours: My Active Orders 02/29/20 21:41 STREP SCRN A RAPID W CULT CONF [RM] Stat 02/29/20 21:45 CULTURE STREP A CONFIRMATION [RM] Stat
== END 2020-02-29 22:10 | disposition home or self-care (01) ==
LOC: JP.ED 20:55
DX: J02.9 Acute pharyngitis, unspecified (principal); F32.9 Major depressive disorder, single episode, unspecified; Z79.899 Other long term (current) drug therapy
CPT/HCPCS: 87081; 87880-QW; 99283

== ENCOUNTER 2020-03-03 09:59 | Emergency (ER) | payer BC ==
[2020-03-03 10:35] VITALS: BP 137/74; PULSE 66
--- NOTE | 2020-03-03 10:43 | EDM.PDOC ---
ED HPI GENERAL MEDICAL PROBLEM - General Chief Complaint: ENT Problem Stated Complaint: POSSIBLE STREP Time Seen by Provider: 03/03/20 10:30 Source of Information: Reports: Patient History Limitations: Reports: No Limitations - History of Present Illness INITIAL COMMENTS - FREE TEXT/NARRATIVE: 24-year-old male with a sore throat for the past 3 days. He was in 2 days ago and had a rapid strep, it was negative and the culture has also grown nothing. He is taking ibuprofen every 4-6 hours, feels like he is not improving and wants to be checked again. No other symptoms such as shortness of breath or cough, no rash. Onset: Gradual Duration: Day(s): (3 days) Associated Symptoms: Reports: Malaise. Denies: Chest Pain, Cough, Fever/Chills , Headaches, Loss of Appetite, Nausea/Vomiting, Shortness of Breath Throat Pain Score (Numeric/FACES): 6 - Related Data Allergies Allergy/AdvReac Type Severity Reaction Status Date / Time No Known Allergies Allergy Verified 03/03/20 10:28 Home Meds: Home Meds Venlafaxine HCl [Venlafaxine HCl ER] 75 mg PO DAILY 09/03/17 [History] Past Medical History HEENT History: Reports: Impaired Vision Cardiovascular History: Reports: Blood Clots/VTE/DVT Respiratory History: Reports: PE Genitourinary History: Reports: Renal Calculus Neurological History: Reports: Concussion Psychiatric History: Reports: Depression Immunologic History: Reports: Immunosuppression, Other (See Below) Other Immunologic History: chemo Oncologic (Cancer) History: Reports: Hodgkin's Lymphoma, Lymphoma Dermatologic History: Reports: Eczema, Other (See Below) Other Dermatologic History: rash on upper chest and neck d/t radiation - Infectious Disease History Infectious Disease History: Reports: Chicken Pox - Past Surgical History Oncologic Surgical History: Reports: Other (See Below) Other Oncologic Surgeries/Procedures: lymph node removed from neck Social & Family History - Tobacco Use Smoking Status *Q: Never Smoker Second Hand Smoke Exposure: No - Caffeine Use Caffeine Use: Reports: Coffee, Energy Drinks, Soda - Alcohol Use Days Per Week of Alcohol Use: 2 Number of Drinks Per Day: 4 Total Drinks Per Week: 8 - Recreational Drug Use Recreational Drug Use: No ED ROS ENT - Review of Systems Review Of Systems: See Below Constitutional: Reports: Malaise. Denies: Fever, Chills HEENT: Reports: Throat Pain Respiratory: Denies: Shortness of Breath, Cough Cardiovascular: Denies: Chest Pain GI/Abdominal: Denies: Nausea, Vomiting Skin: Denies: Rash Neurological: Denies: Headache ED EXAM, ENT - Physical Exam Exam: See Below Exam Limited By: No Limitations General Appearance: Alert, No Apparent Distress Eye Exam: Bilateral Eye: Normal Inspection Mouth/Throat: Pharyngeal Erythema, Tonsillar Erythema, Tonsillar Exudates Neck: No: Lymphadenopathy (R), Lymphadenopathy (L) Respiratory/Chest: Lungs Clear Course - Vital Signs Last Recorded V/S: Last Vital Signs Temp 98.1 F 03/03/20 10:34 Pulse 66 03/03/20 10:34 Resp 16 03/03/20 10:34 BP 137/74 03/03/20 10:34 Pulse Ox 97 03/03/20 10:34 - Orders/Labs/Meds Labs: Laboratory Tests 03/03/20 03/03/20 Range/Units 10:50 10:50 WBC 7.5 (4.5-11.0) K/uL RBC 4.76 (4.30-5.90) M/uL Hgb 14.5 (12.0-15.0) g/dL Hct 42.1 (40.0-54.0) % MCV 88 (80-98) fL MCH 31 (27-31) pg MCHC 34 (32-36) % Plt Count 166 (150-400) K/uL Neut % (Auto) 67 H (36-66) % Lymph % (Auto) 21 L (24-44) % [place] % (Auto) 12 H (2-6) % Eos % (Auto) 1 L (2-4) % Baso % (Auto) 0 (0-1) % Monoscreen Negative (NEGATIVE) - Re-Assessments/Exams Free Text/Narrative Re-Assessment/Exam: 03/03/20 10:43 CBC and Monospot were obtained. 03/03/20 11:19 Monospot was negative, total white count was normal but his neutrophil percentage was elevated and lymphocytic percentage is down. This may indicate another type of bacterial infection which is not strep. He was placed on clindamycin 300 mg 3 times a day for 7 days, and given 100 cc of viscous lidocaine to use for topical numbness, and can recheck in 3 days if not improving. Departure - Departure Time of Disposition: 11:29 Disposition: Home, Self-Care 01 Clinical Impression: Pharyngitis Qualifiers: Pharyngitis/tonsillitis etiology: unspecified etiology Qualified Code(s): J02.9 - Acute pharyngitis, unspecified - Discharge Information Instructions: Pharyngitis, [id number] Referrals: PCP,None [Primary Care Provider] - Forms: ED Department Discharge Care Plan Goals: Take antibiotic 3 times a day, and recheck in 2 to 3 days if not improving satisfactorily. Use topical numbing medicine as needed for pain and continue with ibuprofen and stay hydrated. Return sooner if worsening such as persistent vomiting or unable to take medication. Sepsis Event Note - Evaluation Sepsis Screening Result: No Definite Risk - Focused Exam Vital Signs: Vital Signs Temp Pulse Resp BP Pulse Ox 03/03/20 10:34 98.1 F 66 16 137/74 97 Date Exam was Performed: 03/03/20 Time Exam was Performed: 13:33
== END 2020-03-03 11:29 | disposition home or self-care (01) ==
LOC: JP.ED 09:59
DX: J02.9 Acute pharyngitis, unspecified (principal); Z79.899 Other long term (current) drug therapy
CPT/HCPCS: 36415; 85025; 86308; 99283

== ENCOUNTER 2024-09-22 07:31 | Day surgery (SDC) | payer BC ==
[2024-09-22] MEDS: Lactated Ringers 1,000 ML IV SCH (08:20)
[2024-09-22] MEDS ORDERED: Propofol 200 MG/20 ML SDV ONE ×2 (09:30→09:45)
[2024-09-22] MEDS ORDERED: fentaNYL 100 MCG/2 ML SDV ONE (09:30)
[2024-09-22] MEDS ORDERED: Midazolam 1 MG/ML 2 ML SDV ONE (09:31)
[2024-09-22 11:31] VITALS: BP 121/80; PULSE 64
== END 2024-09-22 11:38 | disposition home or self-care (01) ==
LOC: JP.SDS 07:31
PROVIDERS: ATTEND Family Medicine
DX: D12.3 Benign neoplasm of transverse colon (principal); K21.9 Gastro-esophageal reflux disease without esophagitis
CPT/HCPCS: 00811; 45380; J2250; J2704; J3010; J7120